=== PATIENT | male | born 1940 | race African-American/Black ===

== ENCOUNTER 2017-03-24 09:59 | Emergency (ER) | payer BC ==
[~2017-03-24] VITALS: Ht 165.1 cm; Wt 77.1 kg
--- NOTE | ~2017-03-24 | EKG ---
PATIENT: AURELIANO BURDEN UNIT #: [id number] Ventricular Rate: 82 BPM Atrial Rate: 82 BPM P-R Interval: 212 ms QRS Duration: 78 ms Q-T Interval: 386 ms QTC Calculation(Bezet): 450 ms P [place]: 75 degrees Calculated R [place]: -16 degrees Calculated T [place]: 43 degrees Diagnosis Line: Sinus rhythm with 1st degree A-V block Diagnosis Line: Otherwise normal ECG Diagnosis Line: No previous ECGs available Diagnosis Line: Confirmed by ALEXANDRA CASTRO MD ([id number]) on 03/24/2017 Diagnosis Line: 3:16:44 PM INTERPRETING MD: MATTHEW HICKEY
[2017-03-24 11:37] LABS: BASOPHIL% 0.2 % (0-2.5); EOSINOPHIL% 0.4 % (0.0-7.0); HEMATOCRIT 43.4 % (38.0-50.0); HEMOGLOBIN 14.3 gm/dL (13.0-16.0); LYMPHOCYTE# 0.7 X10e3 (1.0-3.5); LYMPHOCYTE% 6.9 % (17.0-45.0); MEAN CELL VOLUME 88.4 FL (83-96); MEAN CORPUSCULAR HEMOGLOBIN 29.1 PG (28-34); MEAN CORPUSCULAR HGB CONC 32.9 g/dL (30-36); MEAN PLATELET VOLUME 9.5 FL (6.5-11.5); MONOCYTE# 0.5 X10e3 (0-1.0); MONOCYTE% 5.7 % (3.0-12.0); NEUTROPHIL# 8.2 X10e3 (1.5-7.1); NEUTROPHIL% 86.8 % (40-75); PLATELET COUNT 158 X10e3 (140-420); RED BLOOD COUNT 4.91 X10e (3.90-5.60); RED CELL DISTRIBUTION WIDTH 13.9 % (11.0-15.5); WHITE BLOOD COUNT 9.5 X10e3 (4.0-10.5)
[2017-03-24 11:45] LABS: DIFF IND NO
[2017-03-24 11:50] LABS: POC - CKMB 1.4 ng/mL (0.0-7.9); POC - TROPONIN <0.05 ng/mL (<=0.05)
[2017-03-24 12:03] LABS: ALBUMIN SERUM 4.3 g/dL (3.5-5.0); BILIRUBIN,TOTAL 0.8 mg/dL (0.2-2.0); BUN/CREATININE RATIO 9.09; CALCIUM SERUM 9.3 mg/dL (8.4-10.2); CREATININE SERUM 1.1 mg/dL (0.6-1.4); GLOM FILT RATE Estimated 75.2 mL/min (>60); PROTEIN TOTAL SERUM 8.5 g/dL (6.0-8.3)
[2017-03-24] MEDS ORDERED: TRAMADOL HCL50 M1 PO (13:20)
[2017-03-24] MEDS ORDERED: NOVOLOG FL100 UNIT/1 SUBQ (13:21)
[2017-03-24] MEDS ORDERED: DOXAZOSIN MESYLA4 MG PO (13:21)
[2017-03-24] MEDS ORDERED: RANITIDINE HCL150 M1 PO (13:22)
[2017-03-24] MEDS ORDERED: SIMVASTATIN40 MG PO (13:22)
[2017-03-24] MEDS ORDERED: PRINIVIL40 MG PO (13:22)
[2017-03-24] MEDS ORDERED: ATENOLOL50 MG PO (13:22)
[2017-03-24] MEDS ORDERED: CATAPRES0.1 MG PO (13:23)
== END 2017-03-24 14:10 | disposition home or self-care (01) ==
LOC: CED 09:59
PROVIDERS: Emergency Medicine
DX: R11.2 Nausea with vomiting, unspecified (principal); I10 Essential (primary) hypertension; E11.9 Type 2 diabetes mellitus without complications; Z90.49 Acquired absence of other specified parts of digestive tract
CPT/HCPCS: 36415; 80053; 82553; 83690; 84484; 85025; 93005; 96361; 96374; 96375; 99284; C9113; J2765